=== PATIENT | female | born 1965 | race African-American/Black ===

== ENCOUNTER 2016-09-15 19:34 | Inpatient (IN) | payer OTHER ==
[~2016-09-15] VITALS: Ht 162.6 cm; Wt 93.1 kg
--- NOTE | ~2016-09-15 | H ---
[facility] [address] HISTORY AND PHYSICAL Name: AMAN MARTINEZ Room #: 432-P ADM IN M.R.#: [id number] Admission: 09/15/16 Attend Phys: Dallin Elizabeth Discharge: Date of : 61 Report #: [id number] THIS REPORT FOR: //name// CC: JENNIFFER physician/PCP Dallin Elizabeth DATE OF ADMISSION: 09/16/2016 ATTENDING PHYSICIAN: Rhoda Elizabeth PRIMARY CARE PHYSICIAN: None. CHIEF COMPLAINT: Right flank pain, fevers, nausea, vomiting. HISTORY OF PRESENT ILLNESS: The patient is a 51-year-old -[place] female, who thought she had a UTI last week, so she took some ____ and initially felt better than in the last few days she is significantly felt worse. She started having some right flank pain as well as some abdominal pain with nausea, vomiting and chills. She had temperature up to 99.3 at home. She is also having hot flashes. Denies any diarrhea. Overall, she had decreased appetite. She did have dysuria at the end of each urination. She denies any hematuria. She came into the ER and was noted to have a significant UTI with concerns for pyelonephritis, so she has been admitted for further treatment with IV antibiotics. She was also noted to have anemia. She did states that she has had anemia during pregnancies, but she has not had any recent blood work and normally does not go to a primary doctor. She does crave ice. She denies any bleeding. Denies any black or bloody stools. PAST MEDICAL HISTORY: None. PAST SURGICAL HISTORY: . ALLERGIES: None. HOME MEDICATIONS: None. SOCIAL HISTORY: The patient denies any tobacco use. She does drink alcohol occasionally, but denies any daily use. She smokes marijuana weekly. She lives alone. 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 FAMILY HISTORY: Her mother is alive with diabetes and CHF. Her father is with COPD and also had Alzheimer's. REVIEW OF SYSTEMS: Twelve point review of systems was reviewed with the patient, otherwise negative unless stated in the HPI. PHYSICAL EXAMINATION: [facility] [address] [place] [address] HISTORY AND PHYSICAL Name: AMAN MARTINEZ Room #: 432-P [facility]#: [id number] Admission: 09/15/16 Attend Phys: Dallin Elizabeth Discharge: Date of : 61 Report #: [id number] GENERAL: The patient is an alert female in no acute distress. VITAL SIGNS: Temperature is 39.6, heart rate 117, respirations 22, blood pressure is 126/69 and oxygen 100% on room air. HEENT: PERRLA. Sclerae is nonicteric. Oral mucosa is pink and dry. NECK: Supple, no JVD noted. CARDIOVASCULAR: Normal S1, S2. No murmurs, rubs or gallops. RESPIRATORY: Breath sounds are clear bilaterally. No wheezing or rhonchi. Breathing is nonlabored. ABDOMEN: Soft and nondistended. She is mildly tender across her suprapubic area, she also has some mild right-sided flank pain and bowel sounds are positive. VASCULAR: No edema noted. Pedal pulses are 2+. NEUROLOGIC: The patient is alert and oriented x 3. Speech is clear. She is answering questions appropriately and following commands. No focal neuro deficits noted. LABORATORY DATA: WBC is 17.4, hemoglobin is 8.1, platelets 245. Sodium 138, potassium 3.2, BUN is 17, creatinine 1.3, glucose 130. LFTs are within normal limits. Lactate is 0.7. Lipase is 77. Albumin is 2.8. UA showed 2+ leukocyte esterase, positive nitrite, many WBCs, many bacteria. ASSESSMENT AND PLAN: 1. Acute pyelonephritis, urine has been sent for culture. We will continue with Rocephin and pain control and IV fluids and Tylenol for p.r.n. fevers. 2. Anemia, not sure if this is chronic. We do not have any recent labs to compare. We will check iron panel and hemoccult stools and follow labs and transfuse blood if necessary. 3. Hypokalemia. This is being replaced. Follow labs. 4. Deep venous thrombosis prophylaxis, place sequential compression devices. We will continue to follow the patient closely throughout the hospitalization and make changes based on clinical status. <ELECTRONICALLY SIGNED> By: TIM Matta 09/18/16 [id number] TIM Matta /nt
[~2016-09-15 19:34] MED LIST: COLACE100 MG PO; IRON325 PO; ONDANSETRON HCL4 M2 PO; ZANTAC 150MG T150 MG PO
[2016-09-15 19:35] VITALS: BP 126/69
[2016-09-15 20:07] LABS: URINE BLOOD 2+ (Negative); URINE COLOR YELLOW; URINE GLUCOSE-RANDOM* TRACE (Negative); URINE KETONES NEGATIVE (Negative); URINE LEUKOCYTES-REFLEX 2+ (Negative); URINE PROTEIN (DIPSTICK) 3+ (Negative); URINE UROBILINOGEN >= 8.0 E.U./dl (0.2-1.0)
[2016-09-15 20:10] LABS: URINE BILIRUBIN NEGATIVE (Negative)
[2016-09-15 20:12] LABS: SQUAMOUS 0-3 Few /LPF (0-3)
[2016-09-15 20:13] LABS: URINE RBC 3-10 Few /HPF (0-2); URINE WBC-REFLEX >25 Many /HPF (0-5)
[2016-09-15 20:14] LABS: HEMATOCRIT 26.7 % (37.0-47.0); HEMOGLOBIN 8.1 gm/dL (12.0-15.0); MCH 19.3 pg (26.0-34.0); MCHC 30.3 g/dL (28.0-37.0); MCV 63.7 fL (80.0-100.0); PLATELET COUNT 245 thou/uL (150-400); RBC 4.19 mil/uL (4.20-5.00); RDW 20.6 % (10.5-14.5); WBC 17.4 thou/uL (4.0-11.0)
[2016-09-15 20:14] LABS: CASTS None Seen /LPF (None Seen); CRYSTALS None Seen /LPF (None Seen)
[2016-09-15 20:15] LABS: MANUAL DIFF YES
[2016-09-15 20:30] LABS: ALBUMIN 2.8 g/dL (3.4-5.0); CALCIUM 8.6 mg/dL (8.5-10.1); CREATININE 1.3 mg/dL (0.6-1.0); POTASSIUM 3.2 mmol/L (3.5-5.1); TOTAL BILIRUBIN 1.3 mg/dL (<0.1-1.0); TOTAL PROTEIN 7.2 g/dL (6.4-8.2)
[2016-09-15 20:35] LABS: ABSOLUTE NEUTROPHILS 15.7 thou/uL (1.4-8.2); ANISOCYTOSIS 1+; TOTAL CELL COUNT 100
[2016-09-15 21:24] VITALS: BP 126/69
[2016-09-16 03:48] LABS: HEMOGLOBIN 7.1 gm/dL (12.0-15.0); MCH 19.5 pg (26.0-34.0); MCHC 29.6 g/dL (28.0-37.0); MCV 65.8 fL (80.0-100.0); RBC 3.65 mil/uL (4.20-5.00); RDW 20.8 % (10.5-14.5); WBC 14.5 thou/uL (4.0-11.0)
[2016-09-16 04:03] LABS: CREATININE 1.1 mg/dL (0.6-1.0); MAGNESIUM 1.6 mg/dL (1.8-2.4); POTASSIUM 3.1 mmol/L (3.5-5.1)
[2016-09-16 04:13] LABS: % SATURATION 3 % (20-39); IRON 8 ug/dL (50-170); TIBC 309 ug/dL (250-450); UIBC 301 ug/dL
[2016-09-16 04:30] VITALS: BP 137/84
[2016-09-16 08:00] VITALS: BP 124/77
[2016-09-16 16:00] VITALS: BP 121/75
[2016-09-16 21:44] VITALS: BP 136/94
[2016-09-17 03:44] VITALS: BP 133/92
[2016-09-17 05:32] LABS: HEMATOCRIT 23.7 % (37.0-47.0); HEMOGLOBIN 7.1 gm/dL (12.0-15.0); MCH 19.6 pg (26.0-34.0); MCV 65.4 fL (80.0-100.0); PLATELET COUNT 229 thou/uL (150-400); RBC 3.62 mil/uL (4.20-5.00); RDW 20.3 % (10.5-14.5); WBC 10.4 thou/uL (4.0-11.0)
[2016-09-17 05:34] LABS: MANUAL DIFF YES
[2016-09-17 05:52] LABS: CALCIUM 8.7 mg/dL (8.5-10.1); CREATININE 0.9 mg/dL (0.6-1.0); POTASSIUM 4.3 mmol/L (3.5-5.1)
[2016-09-17 08:09] VITALS: BP 138/91
[2016-09-17 08:38] LABS: ABSOLUTE NEUTROPHILS 8.4 thou/uL (1.4-8.2); TOTAL CELL COUNT 100
[2016-09-17 08:40] LABS: ANISOCYTOSIS 2+; HYPOCHROMASIA 3+; MICROCYTES 3+; OVALOCYTES FEW
[2016-09-17 14:41] LABS: OBSERVED RETIC COUNT 1.05 % (0.6-2.6)
[2016-09-17 15:19] VITALS: BP 137/93
[2016-09-17 23:00] VITALS: BP 132/83
[2016-09-18 04:20] VITALS: BP 159/87
[2016-09-18 06:00] LABS: HEMATOCRIT 22.8 % (37.0-47.0); MCH 19.6 pg (26.0-34.0); MCHC 30.7 g/dL (28.0-37.0); MCV 63.8 fL (80.0-100.0); PLATELET COUNT 232 thou/uL (150-400); RBC 3.58 mil/uL (4.20-5.00); RDW 20.4 % (10.5-14.5)
[2016-09-18 06:17] LABS: MANUAL DIFF YES
[2016-09-18 06:21] LABS: CALCIUM 8.4 mg/dL (8.5-10.1); CREATININE 0.9 mg/dL (0.6-1.0); POTASSIUM 3.2 mmol/L (3.5-5.1)
[2016-09-18 07:45] VITALS: BP 133/88
[2016-09-18 08:12] LABS: ABSOLUTE NEUTROPHILS 7.6 thou/uL (1.4-8.2); METAMYELOCYTES 1 %; TOTAL CELL COUNT 100
[2016-09-18 08:13] LABS: ANISOCYTOSIS 2+; HYPOCHROMASIA 2+; MICROCYTES 3+
[2016-09-18 11:27] VITALS: BP 133/88
[2016-09-18] MEDS ORDERED: CIPRO500 MG PO (11:48)
[2016-09-18] MEDS ORDERED: IRON325 PO (11:48)
[2016-09-18] MEDS ORDERED: HYDROCODON-ACE1 EAC7 PO (11:48)
[2016-09-18 14:22] VITALS: BP 133/88
[2016-09-18 15:48] VITALS: BP 135/94
[2016-09-18 17:05] LABS: HEMATOCRIT 24.6 % (37.0-47.0); HEMOGLOBIN 7.4 gm/dL (12.0-15.0); MCH 19.7 pg (26.0-34.0); MCHC 30.2 g/dL (28.0-37.0); MCV 65.2 fL (80.0-100.0); RBC 3.77 mil/uL (4.20-5.00); WBC 10.5 thou/uL (4.0-11.0)
[2016-09-18 17:13] LABS: CALCIUM 8.5 mg/dL (8.5-10.1); CREATININE 0.8 mg/dL (0.6-1.0); POTASSIUM 3.7 mmol/L (3.5-5.1)
[2016-09-18 19:53] VITALS: BP 125/81; BP 146/89
[2016-09-19 04:22] VITALS: BP 146/98
[2016-09-19 07:49] VITALS: BP 142/90
[2016-09-19 09:11] LABS: HEMATOCRIT 27.4 % (37.0-47.0); HEMOGLOBIN 8.6 gm/dL (12.0-15.0); MCH 21.2 pg (26.0-34.0); MCHC 31.6 g/dL (28.0-37.0); MCV 67.1 fL (80.0-100.0); RBC 4.08 mil/uL (4.20-5.00); RDW 23.8 % (10.5-14.5); WBC 10.7 thou/uL (4.0-11.0)
[2016-09-19 11:16] VITALS: BP 133/88
[2016-09-19 12:43] VITALS: BP 133/88
== END 2016-09-19 12:17 | disposition home or self-care (01) | DRG 871 ==
LOC: ER 19:34 → EROBS 20:53 → 4E 20:53
PROVIDERS: Emergency Medicine; Internal Medicine; Internal Medicine Endocrinology, Diabetes & Metabolism; Nurse Practitioner Acute Care
DX: A41.9 Sepsis, unspecified organism (principal); N17.1 Acute kidney failure with acute cortical necrosis; N17.0 Acute kidney failure with tubular necrosis; N10 Acute pyelonephritis; E87.6 Hypokalemia; D50.9 Iron deficiency anemia, unspecified; D63.8 Anemia in other chronic diseases classified elsewhere; B96.20 Unspecified Escherichia coli [E. coli] as the cause of diseases classified elsewhere; Z83.3 Family history of diabetes mellitus; Z82.49 Family history of ischemic heart disease and other diseases of the circulatory system; Z83.6 Family history of other diseases of the respiratory system; Z81.8 Family history of other mental and behavioral disorders
CPT/HCPCS: 10183

== ENCOUNTER 2016-12-10 07:01 | Emergency (ER) | payer OTHER ==
[~2016-12-10] VITALS: Ht 162.6 cm; Wt 92.5 kg
[~2016-12-10 07:01] MED LIST changes: +CIPRO500 MG PO; +HYDROCODON-ACE1 EAC7 PO
[2016-12-10 07:15] LABS: URINE BILIRUBIN NEGATIVE (Negative); URINE BLOOD NEGATIVE (Negative); URINE COLOR YELLOW; URINE GLUCOSE-RANDOM* NEGATIVE (Negative); URINE KETONES NEGATIVE (Negative); URINE NITRITE NEGATIVE (Negative); URINE PROTEIN (DIPSTICK) NEGATIVE (Negative); URINE UROBILINOGEN 0.2 E.U./dl (0.2-1.0)
[2016-12-10] MEDS ORDERED: IBUPROFEN 800800 MG PO (08:04)
== END 2016-12-10 08:15 | disposition home or self-care (01) ==
LOC: ER 07:01
PROVIDERS: Emergency Medicine
DX: B34.9 Viral infection, unspecified (principal); F10.99 Alcohol use, unspecified with unspecified alcohol-induced disorder; F15.10 Other stimulant abuse, uncomplicated; Z98.890 Other specified postprocedural states

== ENCOUNTER 2020-05-29 23:26 | Emergency (ER) | payer BC ==
[~2020-05-29] VITALS: Ht 162.6 cm; Wt 93.4 kg
[~2020-05-29 23:26] MED LIST changes: +IBUPROFEN 800800 MG PO
[2020-05-29] MEDS ORDERED: AMOXICILLIN 50500 MG PO (23:40)
[2020-05-30 00:11] LABS: HEMATOCRIT 35.4 % (37.0-47.0); HEMOGLOBIN 12.5 gm/dL (12.0-15.0); MCH 31.9 pg (26.0-34.0); MCHC 35.5 g/dL (28.0-37.0); MCV 90.1 fL (80.0-100.0); RBC 3.92 mil/uL (4.20-5.00); RDW 13.7 % (10.5-14.5); WBC 8.5 thou/uL (4.0-11.0)
[2020-05-30 00:28] LABS: ANION GAP 14 mmol/L (7-16); BUN 9 mg/dL (7-18); CALCIUM 9.5 mg/dL (8.5-10.1); CHLORIDE 103 mmol/L (98-107); CO2 25 mmol/L (21-32); CREATININE 0.7 mg/dL (0.6-1.0); GLUCOSE 121 mg/dL (74-106); POTASSIUM 3.2 mmol/L (3.5-5.1); SODIUM 142 mmol/L (136-145)
[2020-05-30 00:37] LABS: ALBUMIN 4.1 g/dL (3.4-5.0); DIRECT BILIRUBIN 0.1 mg/dL (<0.1-0.2); LIPASE 92 U/L (73-393); SGOT 14 U/L (15-37); SGPT 17 U/L (30-65); TOTAL BILIRUBIN 0.6 mg/dL (0.2-1.0); TOTAL PROTEIN 7.5 g/dL (6.4-8.2); TROPONIN-I <0.06 ng/mL (<0.06)
[2020-05-30] MEDS ORDERED: MAALOX ADVANCE355 ML PO (01:02)
[2020-05-30 01:22] VITALS: BP 106/68
--- NOTE | 2020-05-30 07:46 | EKG ---
[place] [address] [facility] [place] [place] [address] ELECTROCARDIOGRAM REPORT Name: AMAN MARTINEZ Room #: DEP [facility]#: [id number] Admission: 05/29/20 Attend Phys: Discharge: 05/30/20 Date of : 61 Report #: [id number] [facility] ED Test Date: 2020-05-30 Test Time: 00:07:24 Pat Name: AMAN MARTINEZ Department: Room: Gender: F Hot [employer]aster: ALEXIS : 1965 Requested By: Clayton Lopez Order Number: [id number] MD: Jone Pimentel Measurements Intervals [place] Rate: 60 P: 73 DE: 148 QRS: 46 QRSD: 89 T: 53 QT: 406 QTc: 406 Interpretive Statements Sinus rhythm No significant abnormality Compared to ECG 09/04/2015 21:05:28 No significant changes Electronically Signed On 05-30-2020 7:45:47 [employer] by Jone Pimentel [email or web address] <ELECTRONICALLY SIGNED> By: Jone Pimentel MD, [facility] 05/30/20 [id number] [id number] Jone Pimentel MD, FACC /EPI
== END 2020-05-30 01:30 | disposition home or self-care (01) ==
LOC: ER 23:26
PROVIDERS: Emergency Medicine
DX: R10.13 Epigastric pain (principal); R11.2 Nausea with vomiting, unspecified; N89.8 Other specified noninflammatory disorders of vagina; R30.9 Painful micturition, unspecified; Z98.890 Other specified postprocedural states; Z88.1 Allergy status to other antibiotic agents